=== PATIENT | male | born 1960 | race Caucasian/White ===

== ENCOUNTER 2016-09-09 09:16 | Emergency (ER) | payer OTHER ==
[~2016-09-09] VITALS: Ht 177.8 cm; Wt 86.2 kg
[~2016-09-09 09:16] MED LIST: AMOXICILLIN500 M2 PO; ASPIRIN324 MG PO; ASPIRIN325 MG PO; ATARAX25 MG PO; ATIVAN1 MG PO; BACTRIM DS 8001 TA1 PO; BENADRYL ALLERG25 M5 PO; CIPRO500 MG PO; DELTASONE20 M1 PO; EPIPEN 2-PAK1 MG/ML IJ; FLEXERIL10 MG PO; HYDROCODONE BIT1 T11 PO; IBU800 M1 PO; KEFLEX500 MG PO; LIDEX 0.05% CRE15 GM T; LIDEX0.05% T; MEDROL DOSEPAK4 MG PO; MOTRIN800 MG PO; NAPROSYN500 MG PO; PEN-VEE K500 MG PO; PEPCID20 MG PO; PROAIR HFA8.5 GM INH; ULTRAM50 MG PO; Zofran4 MG PO
[2016-09-09 09:20] VITALS: BP 139/78
[2016-09-09] MEDS ORDERED: CYCLOBENZAPRINE10 MG PO (09:39)
== END 2016-09-09 09:54 | disposition home or self-care (01) ==
LOC: ED 09:16
DX: M54.5 Low back pain (principal); F17.200 Nicotine dependence, unspecified, uncomplicated; J44.9 Chronic obstructive pulmonary disease, unspecified

== ENCOUNTER 2016-09-18 00:18 | Emergency (ER) | payer OTHER ==
[~2016-09-18] VITALS: Ht 172.7 cm; Wt 91.2 kg
[~2016-09-18 00:18] MED LIST changes: +CYCLOBENZAPRINE10 MG PO
[2016-09-18 00:46] LABS: BASO # 0.1 10*3/uL (0.0-0.1); BASO % 0.8 % (0.0-1.0); EOS # 0.2 10*3/uL (0.0-0.4); EOS % 1.6 % (1.0-4.0); HEMATOCRIT 44.6 % (42.0-52.0); HEMOGLOBIN 15.8 g/dl (14.0-18.0); IG # 0.1 10*3/uL (0.0-0.1); LYMPH # 3.5 10*3/uL (1.3-4.4); LYMPH % 29.7 % (27.0-41.0); MEAN CELL VOLUME 89.4 fl (80.0-94.0); MEAN CORPUSCULAR HGB 31.7 pg (27.0-31.0); MEAN CORPUSCULAR HGB CONC 35.4 g/dl (33.0-37.0); MEAN PLATELET VOLUME 8.4 fl (9.6-12.3); MONO # 0.8 10*3/uL (0.1-1.0); MONO % 6.8 % (3.0-9.0); NEUT # 7.2 10*3/uL (2.3-7.9); NEUT % 60.6 % (47.0-73.0); PLATELET COUNT AUTOMATED 314 10*3/uL (130-400); RED BLOOD COUNT 4.99 10*6/uL (4.50-5.90); WHITE BLOOD COUNT 11.8 10*3/uL (4.8-10.8)
[2016-09-18 01:06] LABS: ALBUMIN 3.9 gm/dl (3.1-4.5); ALKALINE PHOSPHATASE 73 U/L (45-117); BILIRUBIN, TOTAL 0.3 mg/dl (0.2-1.0); BUN 19 mg/dl (7-24); CARBON DIOXIDE 23 mmol/L (21-32); CHLORIDE 108 mmol/L (98-107); EST GLOM FILT AFRICAN AMERICAN > 60 ml/min; GLUCOSE 98 mg/dL (65-99); POTASSIUM 3.8 mmol/L (3.5-5.1); SGOT/AST 20 IU/L (3-35); SGPT/ALT 21 U/L (12-78); SODIUM 143 mmol/L (136-145); TOTAL PROTEIN 7.1 gm/dL (6.4-8.2)
[2016-09-18 03:01] VITALS: BP 106/69
[2016-09-18] MEDS ORDERED: ROBITUSSIN AC 110 ML PO (03:21)
== END 2016-09-18 03:39 | disposition home or self-care (01) ==
LOC: ED 00:18
PROVIDERS: Emergency Medicine
DX: Z77.098 Contact with and (suspected) exposure to other hazardous, chiefly nonmedicinal, chemicals (principal); R06.02 Shortness of breath; J44.9 Chronic obstructive pulmonary disease, unspecified

== ENCOUNTER → 2016-11-05 | Day surgery (SDC) | payer OTHER ==
[~2016-11-05] VITALS: Ht 175.2 cm; Wt 90.7 kg
[~2016-11-05] MED LIST changes: +ASPIRIN BUFFER325 MG PO; +ROBITUSSIN AC 110 ML PO
[2016-11-05 10:00] VITALS: BP 114/63
[2016-11-05 10:47] VITALS: BP 88/41
== END | disposition home or self-care (01) ==
LOC: SDC 11-02 13:15
DX: L72.11 Pilar cyst (principal); J44.9 Chronic obstructive pulmonary disease, unspecified; K21.9 Gastro-esophageal reflux disease without esophagitis; Z98.890 Other specified postprocedural states; Z82.49 Family history of ischemic heart disease and other diseases of the circulatory system; F17.210 Nicotine dependence, cigarettes, uncomplicated; Z79.899 Other long term (current) drug therapy

== ENCOUNTER 2016-12-29 10:02 | Emergency (ER) | payer OTHER ==
[~2016-12-29] VITALS: Ht 177.8 cm; Wt 90.7 kg
[2016-12-29 10:15] VITALS: BP 128/71
[2016-12-29 10:50] LABS: BASO # 0.1 10*3/uL (0.0-0.1); BASO % 0.8 % (0.0-1.0); EOS # 0.1 10*3/uL (0.0-0.4); EOS % 1.4 % (1.0-4.0); HEMATOCRIT 43.6 % (42.0-52.0); HEMOGLOBIN 15.2 g/dl (14.0-18.0); LYMPH # 2.5 10*3/uL (1.3-4.4); LYMPH % 29.2 % (27.0-41.0); MEAN CELL VOLUME 92.8 fl (80.0-94.0); MEAN CORPUSCULAR HGB 32.3 pg (27.0-31.0); MEAN CORPUSCULAR HGB CONC 34.9 g/dl (33.0-37.0); MEAN PLATELET VOLUME 8.9 fl (9.6-12.3); MONO # 0.6 10*3/uL (0.1-1.0); MONO % 7.2 % (3.0-9.0); NEUT # 5.2 10*3/uL (2.3-7.9); NEUT % 60.2 % (47.0-73.0); PLATELET COUNT AUTOMATED 303 10*3/uL (130-400); RED CELL DISTRI WIDTH 13.6 % (0-14.5); WHITE BLOOD COUNT 8.7 10*3/uL (4.8-10.8)
[2016-12-29 10:59] LABS: ACT PARTIAL THROMBO TIME 23.8 SECONDS (20.8-31.5)
[2016-12-29 11:05] LABS: ALBUMIN 3.7 gm/dl (3.1-4.5); ALKALINE PHOSPHATASE 67 U/L (45-117); BUN 10 mg/dl (7-24); CHLORIDE 110 mmol/L (98-107); CREATININE 0.88 mg/dL (0.70-1.30); LIPASE 1333 U/L (73-393); POTASSIUM 4.1 mmol/L (3.5-5.1); SGOT/AST 15 IU/L (3-35); SGPT/ALT 21 U/L (12-78); SODIUM 140 mmol/L (136-145)
[2016-12-29 11:07] LABS: TROPONIN I < 0.015 ng/ml (<0.045)
[2016-12-29 11:15] LABS: BILIRUBIN NEGATIVE (NEGATIVE); BLOOD NEGATIVE (NEGATIVE); CLARITY CLEAR (CLEAR); COLOR YELLOW (YELLOW); GLUCOSE NEGATIVE (NEGATIVE); KETONE NEGATIVE (NEGATIVE); LEUKO ESTERASE NEGATIVE (NEGATIVE); NITRITE NEGATIVE (NEGATIVE); PH 6.5 (5.0-9.0); SPECIFIC GRAVITY 1.015 (1.005-1.030); UROBILINOGEN 0.2 E.U./dl (0.2-1.0)
[2016-12-29 11:45] LABS: EPITHELIAL CELLS 0-2; WBC 0-2 wbc/hpf (0-5)
[2016-12-29] MEDS ORDERED: PREDNISONE10 MG PO (12:59)
[2016-12-29] MEDS ORDERED: ZITHROMAX250 MG PO (12:59)
== END 2016-12-29 13:52 | disposition home or self-care (01) ==
LOC: ED 10:02
PROVIDERS: Emergency Medicine
DX: J44.1 Chronic obstructive pulmonary disease with (acute) exacerbation (principal); J20.9 Acute bronchitis, unspecified; F17.200 Nicotine dependence, unspecified, uncomplicated; Z79.899 Other long term (current) drug therapy; Z87.01 Personal history of pneumonia (recurrent)

== ENCOUNTER 2017-08-01 09:44 | Emergency (ER) | payer OTHER ==
[~2017-08-01] VITALS: Ht 175.2 cm; Wt 90.7 kg
[~2017-08-01 09:44] MED LIST changes: +PREDNISONE10 MG PO; +ZITHROMAX250 MG PO
[2017-08-01 09:46] VITALS: BP 126/88
[2017-08-01] MEDS ORDERED: LIDEX 0.05% CRE15 GM T (10:15)
== END 2017-08-01 10:41 | disposition home or self-care (01) ==
LOC: ED
DX: S60.562A Insect bite (nonvenomous) of left hand, initial encounter (principal); S60.561A Insect bite (nonvenomous) of right hand, initial encounter; S20.469A Insect bite (nonvenomous) of unspecified back wall of thorax, initial encounter; Z79.82 Long term (current) use of aspirin; Z79.899 Other long term (current) drug therapy; W57.XXXA Bitten or stung by nonvenomous insect and other nonvenomous arthropods, initial encounter; Y93.89 Activity, other specified; Y92.89 Other specified places as the place of occurrence of the external cause; Y99.9 Unspecified external cause status

== ENCOUNTER 2017-08-24 09:11 | Emergency (ER) | payer OTHER ==
[~2017-08-24] VITALS: Ht 177.8 cm; Wt 88.5 kg
[2017-08-24 09:12] VITALS: BP 106/76
[2017-08-24] MEDS ORDERED: PREDNISONE20 M1 PO (10:32)
[2017-08-24] MEDS ORDERED: TESSALON PERLE100 M1 PO (10:32)
[2017-08-24] MEDS ORDERED: ZITHROMAX250 MG PO (10:32)
== END 2017-08-24 11:00 | disposition home or self-care (01) ==
LOC: ED 09:11
DX: J20.9 Acute bronchitis, unspecified (principal); F17.200 Nicotine dependence, unspecified, uncomplicated

== ENCOUNTER 2017-12-23 16:43 | Emergency (ER) | payer OTHER ==
[~2017-12-23] VITALS: Ht 175.2 cm; Wt 90.7 kg
[~2017-12-23 16:43] MED LIST changes: +PREDNISONE20 M1 PO; +TESSALON PERLE100 M1 PO
[2017-12-23 16:47] VITALS: BP 102/74
[2017-12-23] MEDS ORDERED: CEPHALEXIN500 M1 PO (18:25)
[2017-12-23] MEDS ORDERED: PREDNISONE50 MG PO (18:25)
== END 2017-12-23 18:27 | disposition home or self-care (01) ==
LOC: ED 16:43
DX: T63.441A Toxic effect of venom of bees, accidental (unintentional), initial encounter (principal); M79.89 Other specified soft tissue disorders; L03.114 Cellulitis of left upper limb; Z91.030 Bee allergy status; Y92.89 Other specified places as the place of occurrence of the external cause

== ENCOUNTER 2018-04-06 13:49 | Emergency (ER) | payer OTHER ==
[~2018-04-06] VITALS: Ht 175.2 cm; Wt 86.2 kg
[~2018-04-06 13:49] MED LIST changes: +CEPHALEXIN500 M1 PO; +PREDNISONE50 MG PO; +Zofran4 MG SL
[2018-04-06 13:50] VITALS: BP 115/65
[2018-04-06] MEDS ORDERED: CYCLOBENZAPRINE5 M3 PO (16:29)
[2018-04-06] MEDS ORDERED: NAPROSYN500 MG PO (16:29)
[2018-04-06] MEDS ORDERED: ULTRAM50 MG PO (16:30)
== END 2018-04-06 16:40 | disposition home or self-care (01) ==
LOC: ED 13:49
DX: S20.412A Abrasion of left back wall of thorax, initial encounter (principal); M54.5 Low back pain; Z91.030 Bee allergy status; W10.8XXA Fall (on) (from) other stairs and steps, initial encounter; Y93.89 Activity, other specified; Y92.89 Other specified places as the place of occurrence of the external cause; Y99.8 Other external cause status

== ENCOUNTER 2019-02-04 19:44 | Emergency (ER) | payer OTHER ==
[~2019-02-04] VITALS: Ht 175.2 cm; Wt 90.7 kg
[~2019-02-04 19:44] MED LIST changes: +CYCLOBENZAPRINE5 M3 PO; +NORCO 5-325 TA1 EACH PO; +VALTREX1000 MG PO
[2019-02-04 19:46] VITALS: BP 122/79
== END 2019-02-04 20:04 | disposition home or self-care (01) ==
LOC: ED 19:44
DX: S05.01XA Injury of conjunctiva and corneal abrasion without foreign body, right eye, initial encounter (principal); Z91.030 Bee allergy status; Z79.899 Other long term (current) drug therapy; Z79.2 Long term (current) use of antibiotics; X58.XXXA Exposure to other specified factors, initial encounter; Y93.89 Activity, other specified; Y92.89 Other specified places as the place of occurrence of the external cause; Y99.8 Other external cause status

== ENCOUNTER 2019-02-06 07:48 | Emergency (ER) | payer OTHER ==
[~2019-02-06] VITALS: Ht 175.2 cm; Wt 90.7 kg
[2019-02-06 07:51] VITALS: BP 132/90
== END 2019-02-06 08:16 | disposition home or self-care (01) ==
LOC: ED 07:48
DX: H57.89 Other specified disorders of eye and adnexa (principal); H57.11 Ocular pain, right eye; H53.8 Other visual disturbances; J44.9 Chronic obstructive pulmonary disease, unspecified; Z91.030 Bee allergy status; Z79.899 Other long term (current) drug therapy; Z79.2 Long term (current) use of antibiotics

== ENCOUNTER 2020-01-22 11:19 | Emergency (ER) | payer OTHER ==
[~2020-01-22] VITALS: Ht 177.8 cm; Wt 89.8 kg
[2020-01-22 11:37] VITALS: BP 117/71
[2020-01-22] MEDS ORDERED: AMOXICILLIN500 M2 PO (12:03)
== END 2020-01-22 12:19 | disposition home or self-care (01) ==
LOC: ED 11:19
DX: K04.7 Periapical abscess without sinus (principal); Z91.030 Bee allergy status

== ENCOUNTER → 2020-07-24 | Outpatient (CLI) | payer OTHER | END | disposition home or self-care (01) | LOC: RAD 10:36 | PROVIDERS: ATTEND Nurse Practitioner Primary Care | DX: M25.532 Pain in left wrist (principal); R20.2 Paresthesia of skin ==

== ENCOUNTER 2020-12-18 04:42 | Emergency (ER) | payer OTHER ==
[2020-12-18 05:08] VITALS: BP 123/76
[2020-12-18] MEDS ORDERED: MIRALAX17 GM PO (05:21)
== END 2020-12-18 05:27 | disposition home or self-care (01) ==
LOC: ED 04:42
DX: K59.00 Constipation, unspecified (principal); Z91.030 Bee allergy status; Z79.899 Other long term (current) drug therapy; Z79.2 Long term (current) use of antibiotics

== ENCOUNTER 2020-12-27 03:13 | Emergency (ER) | payer OTHER ==
[~2020-12-27] VITALS: Ht 175.2 cm; Wt 89.8 kg
[~2020-12-27 03:13] MED LIST changes: +MIRALAX17 GM PO
[2020-12-27 03:20] VITALS: BP 126/91
[2020-12-27 03:57] LABS: BASO # 0.1 10*3/uL (0.0-0.1); BASO % 0.6 % (0.0-1.0); EOS # 0.1 10*3/uL (0.0-0.4); EOS % 0.8 % (1.0-4.0); LYMPH % 17.4 % (27.0-41.0); MEAN CELL VOLUME 92.3 fl (80.0-94.0); MEAN CORPUSCULAR HGB 31.8 pg (27.0-31.0); MEAN CORPUSCULAR HGB CONC 34.4 g/dl (33.0-37.0); MEAN PLATELET VOLUME 8.4 fl (9.6-12.3); MONO # 1.3 10*3/uL (0.1-1.0); MONO % 11.6 % (3.0-9.0); NEUT # 7.8 10*3/uL (2.3-7.9); PLATELET COUNT AUTOMATED 292 10*3/uL (130-400); RED BLOOD COUNT 4.66 10*6/uL (4.50-5.90); RED CELL DISTRI WIDTH 13.2 % (0-14.5); WHITE BLOOD COUNT 11.3 10*3/uL (4.8-10.8)
[2020-12-27 04:12] LABS: ALBUMIN 3.4 gm/dl (3.1-4.5); ALKALINE PHOSPHATASE 87 U/L (45-117); BUN 13 mg/dl (7-24); CHLORIDE 110 mmol/L (98-107); CREATININE 0.87 mg/dL (0.70-1.30); POTASSIUM 3.9 mmol/L (3.5-5.1); SGOT/AST 19 IU/L (3-35); SGPT/ALT 30 U/L (12-78); SODIUM 137 mmol/L (136-145); TOTAL PROTEIN 6.9 gm/dL (6.4-8.2)
== END 2020-12-27 05:33 | disposition home or self-care (01) ==
LOC: ED 03:13
PROVIDERS: Emergency Medicine
DX: J39.8 Other specified diseases of upper respiratory tract (principal); Z20.822 Contact with and (suspected) exposure to COVID-19; J44.9 Chronic obstructive pulmonary disease, unspecified; Z91.030 Bee allergy status

== ENCOUNTER 2020-12-29 17:55 | Emergency (ER) | payer OTHER ==
[~2020-12-29] VITALS: Ht 177.8 cm; Wt 90.7 kg
[2020-12-29 18:01] VITALS: BP 151/76
== END 2020-12-29 18:15 | disposition left against medical advice (07) ==
LOC: ED 17:55
DX: J02.9 Acute pharyngitis, unspecified (principal); R05 Cough; Z53.21 Procedure and treatment not carried out due to patient leaving prior to being seen by health care provider

== ENCOUNTER 2021-06-29 07:27 | Emergency (ER) | payer OTHER ==
[~2021-06-29] VITALS: Wt 90.7 kg
[2021-06-29 07:37] VITALS: BP 117/72
[2021-06-29 08:08] LABS: BASO # 0.1 10*3/uL (0.0-0.1); BASO % 0.7 % (0.0-1.0); EOS # 0.1 10*3/uL (0.0-0.4); EOS % 0.7 % (1.0-4.0); HEMATOCRIT 45.7 % (42.0-52.0); LYMPH # 2.4 10*3/uL (1.3-4.4); LYMPH % 20.6 % (27.0-41.0); MEAN CELL VOLUME 91.2 fl (80.0-94.0); MEAN CORPUSCULAR HGB 31.3 pg (27.0-31.0); MEAN CORPUSCULAR HGB CONC 34.4 g/dl (33.0-37.0); MEAN PLATELET VOLUME 8.2 fl (9.6-12.3); MONO # 1.1 10*3/uL (0.1-1.0); MONO % 9.6 % (3.0-9.0); NEUT % 67.6 % (47.0-73.0); PLATELET COUNT AUTOMATED 363 10*3/uL (130-400); RED BLOOD COUNT 5.01 10*6/uL (4.50-5.90); RED CELL DISTRI WIDTH 13.2 % (0-14.5); WHITE BLOOD COUNT 11.9 10*3/uL (4.8-10.8)
[2021-06-29 08:24] LABS: ALKALINE PHOSPHATASE 78 U/L (45-117); BUN 10 mg/dl (7-24); CHLORIDE 108 mmol/L (98-107); CREATININE 0.97 mg/dL (0.70-1.30); LIPASE 131 U/L (73-393); POTASSIUM 4.2 mmol/L (3.5-5.1); SGOT/AST 12 IU/L (3-35); SGPT/ALT 18 U/L (12-78); SODIUM 140 mmol/L (136-145); TOTAL PROTEIN 7.8 gm/dL (6.4-8.2)
[2021-06-29 08:24] LABS: BILIRUBIN Negative (Negative); BLOOD Negative (Negative); CLARITY Clear (Clear); COLOR Yellow (Yellow); GLUCOSE Negative (Negative); KETONE Negative (Negative); LEUKO ESTERASE Negative (Negative); NITRITE Negative (Negative); SPECIFIC GRAVITY <= 1.005 (1.001-1.030); UROBILINOGEN 0.2 E.U./dl (0.0-1.0)
[2021-06-29 08:38] LABS: BACTERIA TRACE; WBC 0-2 wbc/hpf (0-5)
[2021-06-29] MEDS ORDERED: LOMOTIL 2.5-0.1 EACH PO (08:53)
== END 2021-06-29 08:54 | disposition home or self-care (01) ==
LOC: ED 07:27
PROVIDERS: Emergency Medicine
DX: R19.7 Diarrhea, unspecified (principal); Z91.030 Bee allergy status; J44.9 Chronic obstructive pulmonary disease, unspecified

== ENCOUNTER → 2021-07-02 | Outpatient (CLI) | payer OTHER ==
[~2021-07-02] MED LIST changes: +LOMOTIL 2.5-0.1 EACH PO
== END | disposition home or self-care (01) ==
LOC: LAB 05:51
PROVIDERS: ATTEND Family Medicine
DX: K52.9 Noninfective gastroenteritis and colitis, unspecified (principal)

== ENCOUNTER 2021-08-20 08:02 | Emergency (ER) | payer OTHER ==
[~2021-08-20] VITALS: Wt 89.4 kg
[2021-08-20 08:08] VITALS: BP 127/75
[2021-08-20] MEDS ORDERED: PREDNISONE50 MG PO (08:38)
[2021-08-20] MEDS ORDERED: ZITHROMAX250 MG PO (08:38)
== END 2021-08-20 08:47 | disposition home or self-care (01) ==
LOC: ED 08:02
DX: J32.8 Other chronic sinusitis (principal); Z91.030 Bee allergy status

== ENCOUNTER 2021-10-27 09:42 | Emergency (ER) | payer OTHER ==
[~2021-10-27] VITALS: Ht 175.2 cm; Wt 89.8 kg
[2021-10-27 10:03] VITALS: BP 113/79
[2021-10-27 10:38] LABS: BASO # 0.1 10*3/uL (0.0-0.1); BASO % 0.8 % (0.0-1.0); EOS # 0.1 10*3/uL (0.0-0.4); EOS % 1.1 % (1.0-4.0); HEMATOCRIT 44.7 % (42.0-52.0); LYMPH # 2.6 10*3/uL (1.3-4.4); LYMPH % 29.1 % (27.0-41.0); MEAN CELL VOLUME 89.9 fl (80.0-94.0); MEAN CORPUSCULAR HGB 31.2 pg (27.0-31.0); MEAN CORPUSCULAR HGB CONC 34.7 g/dl (33.0-37.0); MEAN PLATELET VOLUME 8.2 fl (9.6-12.3); MONO # 0.6 10*3/uL (0.1-1.0); MONO % 6.3 % (3.0-9.0); NEUT # 5.6 10*3/uL (2.3-7.9); NEUT % 62.1 % (47.0-73.0); PLATELET COUNT AUTOMATED 297 10*3/uL (130-400); RED BLOOD COUNT 4.97 10*6/uL (4.50-5.90)
[2021-10-27 10:53] LABS: ACT PARTIAL THROMBO TIME 28.8 SECONDS (20.0-32.1)
[2021-10-27 10:57] LABS: ALKALINE PHOSPHATASE 67 U/L (45-117); BUN 10 mg/dl (7-24); CHLORIDE 113 mmol/L (98-107); CREATININE 0.92 mg/dL (0.70-1.30); LIPASE 179 U/L (73-393); POTASSIUM 3.7 mmol/L (3.5-5.1); SGOT/AST 17 IU/L (3-35); SGPT/ALT 22 U/L (12-78); SODIUM 143 mmol/L (136-145)
[2021-10-27] MEDS ORDERED: ZITHROMAX250 MG PO (12:33)
[2021-10-27] MEDS ORDERED: PREDNISONE50 MG PO (12:33)
== END 2021-10-27 12:46 | disposition home or self-care (01) ==
LOC: ED 09:42
PROVIDERS: Emergency Medicine
DX: J44.1 Chronic obstructive pulmonary disease with (acute) exacerbation (principal); Z91.030 Bee allergy status

== ENCOUNTER 2022-01-09 14:31 | Emergency (ER) | payer OTHER ==
[~2022-01-09] VITALS: Ht 172.7 cm; Wt 90.7 kg
[2022-01-09 14:39] VITALS: BP 128/95
== END 2022-01-09 15:50 | disposition left against medical advice (07) ==
LOC: ED 14:31
DX: T63.441A Toxic effect of venom of bees, accidental (unintentional), initial encounter (principal); Z53.21 Procedure and treatment not carried out due to patient leaving prior to being seen by health care provider; Y92.89 Other specified places as the place of occurrence of the external cause

== ENCOUNTER 2022-05-14 03:34 | Emergency (ER) | payer OTHER ==
[~2022-05-14] VITALS: Ht 170.1 cm; Wt 90.7 kg
[2022-05-14 03:56] VITALS: BP 132/84
[2022-05-14 03:59] LABS: BASO # 0.1 10*3/uL (0.0-0.1); BASO % 1.3 % (0.0-1.0); EOS # 0.1 10*3/uL (0.0-0.4); EOS % 1.9 % (1.0-4.0); HEMATOCRIT 48.2 % (42.0-52.0); LYMPH # 1.8 10*3/uL (1.3-4.4); LYMPH % 25.6 % (27.0-41.0); MEAN CELL VOLUME 93.1 fl (80.0-94.0); MEAN CORPUSCULAR HGB 31.9 pg (27.0-31.0); MEAN CORPUSCULAR HGB CONC 34.2 g/dl (33.0-37.0); MEAN PLATELET VOLUME 8.7 fl (9.6-12.3); MONO # 0.8 10*3/uL (0.1-1.0); MONO % 11.5 % (3.0-9.0); NEUT # 4.1 10*3/uL (2.3-7.9); NEUT % 58.8 % (47.0-73.0); PLATELET COUNT AUTOMATED 298 10*3/uL (130-400); RED BLOOD COUNT 5.18 10*6/uL (4.50-5.90); RED CELL DISTRI WIDTH 13.4 % (0-14.5)
[2022-05-14 04:10] LABS: ACT PARTIAL THROMBO TIME 28.1 SECONDS (20.0-32.1)
[2022-05-14 04:27] LABS: ALKALINE PHOSPHATASE 72 U/L (46-116); BUN 15 mg/dl (9-23); CHLORIDE 106 mmol/L (98-107); SGPT/ALT 17 U/L (10-49); TOTAL PROTEIN 7.3 gm/dL (6.0-8.0)
[2022-05-14] MEDS ORDERED: WAL-ZYR10 MG PO (06:39)
[2022-05-14] MEDS ORDERED: BENZONATATE100 M1 PO (06:46)
== END 2022-05-14 07:04 | disposition home or self-care (01) ==
LOC: ED 03:34
PROVIDERS: Emergency Medicine
DX: J06.9 Acute upper respiratory infection, unspecified (principal); Z20.822 Contact with and (suspected) exposure to COVID-19; J44.9 Chronic obstructive pulmonary disease, unspecified; Z91.030 Bee allergy status

== ENCOUNTER 2022-08-10 04:10 | Emergency (ER) | payer OTHER ==
[~2022-08-10] VITALS: Ht 175.2 cm; Wt 90.7 kg
[~2022-08-10 04:10] MED LIST changes: +BENZONATATE100 M1 PO; +WAL-ZYR10 MG PO
[2022-08-10 04:18] VITALS: BP 139/84
== END 2022-08-10 05:23 | disposition home or self-care (01) ==
LOC: ED 04:10
DX: J06.9 Acute upper respiratory infection, unspecified (principal); Z91.030 Bee allergy status; J44.9 Chronic obstructive pulmonary disease, unspecified; Z20.822 Contact with and (suspected) exposure to COVID-19

== ENCOUNTER 2024-01-09 17:27 | Inpatient (IN) | payer SELFPAY ==
[~2024-01-09] VITALS: Ht 177.8 cm; Wt 89.4 kg
[2024-01-09] MEDS ORDERED: ASPIRIN, CHEWABLE 81 MG TAB PO ONE (17:35)
[2024-01-09] MEDS ORDERED: SODIUM CHLORIDE 0.9% 1,000 ML IV ONE (17:43)
[2024-01-09] MEDS ORDERED: ASPIRIN, CHEWABLE 81 MG TAB ONE (17:45)
[2024-01-09 17:46] VITALS: BP 101/67
[2024-01-09 17:55] LABS: BASO # 0.1 10*3/uL (0.0-0.1); BASO % 0.6 % (0.0-1.0); EOS # 0.1 10*3/uL (0.0-0.4); HEMATOCRIT 42.2 % (42.0-52.0); LYMPH # 2.4 10*3/uL (1.3-4.4); LYMPH % 19.1 % (27.0-41.0); MEAN CELL VOLUME 91.5 fl (80.0-94.0); MEAN CORPUSCULAR HGB 31.2 pg (27.0-31.0); MEAN CORPUSCULAR HGB CONC 34.1 g/dl (33.0-37.0); MEAN PLATELET VOLUME 8.1 fl (9.6-12.3); MONO # 0.9 10*3/uL (0.1-1.0); MONO % 7.1 % (3.0-9.0); NEUT % 71.1 % (47.0-73.0); PLATELET COUNT AUTOMATED 329 10*3/uL (130-400); RED BLOOD COUNT 4.61 10*6/uL (4.50-5.90); RED CELL DISTRI WIDTH 13.3 % (0-14.5); WHITE BLOOD COUNT 12.6 10*3/uL (4.8-10.8)
[2024-01-09 18:09] LABS: ACT PARTIAL THROMBO TIME 25.1 SECONDS (20.0-32.1)
[2024-01-09 18:17] LABS: BUN 13 mg/dl (9-23); CHLORIDE 108 mmol/L (98-107); POTASSIUM 3.8 mmol/L (3.4-5.1)
[2024-01-09 18:30] VITALS: BP 112/68
[2024-01-09 18:55] VITALS: BP 115/71
[2024-01-09 20:23] VITALS: BP 117/74
[2024-01-09] MEDS ORDERED: Ceftriaxone Sodium 1 GM/10 ML SYR IV ONE (20:45)
[2024-01-09] MEDS ORDERED: AZITHROMYCIN 250 ML IV ONE (20:45)
[2024-01-09] MEDS ORDERED: Magnesium Hydroxide 30 ML UDC PO PRN (21:30)
[2024-01-09] MEDS ORDERED: Ondansetron Hydrochloride 4 MG/2 ML VIAL IV PRN (21:30)
[2024-01-09] MEDS ORDERED: Acetaminophen/Hydrocodone 5 MG/325 MG TABLET PO PRN (21:30)
[2024-01-09] MEDS ORDERED: TEMAZEPAM 15 MG CAP PO PRN (21:30)
[2024-01-09] MEDS ORDERED: BISACODYL 10 MG SUPP R PRN (21:30)
[2024-01-09] MEDS ORDERED: BISACODYL 5 MG TAB PO PRN (21:30)
[2024-01-09] MEDS ORDERED: ACETAMINOPHEN 325 MG TAB PO PRN (21:30)
[2024-01-09] MEDS ORDERED: MORPHINE Sulfate 2 MG/ML SYR IV PRN (21:30)
[2024-01-09] MEDS ORDERED: Pantoprazole Sodium 40 MG TAB PO PRN (21:40)
[2024-01-09] MEDS ORDERED: Albuterol Sulf/Ipratropium 3 ML VIAL NEB SCH (21:50)
[2024-01-09] MEDS ORDERED: methylPREDNISolone sod succ 40 MG VIAL IV SCH (22:00)
[2024-01-09] MEDS ORDERED: GUAIFENESIN 600 MG TAB ER PO SCH (22:00)
[2024-01-09 23:24] VITALS: BP 120/82
[2024-01-10 06:16] LABS: HEMATOCRIT 43.2 % (42.0-52.0); MEAN CELL VOLUME 92.9 fl (80.0-94.0); MEAN CORPUSCULAR HGB 31.2 pg (27.0-31.0); MEAN CORPUSCULAR HGB CONC 33.6 g/dl (33.0-37.0); MEAN PLATELET VOLUME 8.4 fl (9.6-12.3); PLATELET COUNT AUTOMATED 349 10*3/uL (130-400); RED BLOOD COUNT 4.65 10*6/uL (4.50-5.90); RED CELL DISTRI WIDTH 13.6 % (0-14.5); WHITE BLOOD COUNT 12.8 10*3/uL (4.8-10.8)
[2024-01-10 06:18] LABS: MANUAL DIFF REFLEX YES
[2024-01-10 06:37] LABS: ALKALINE PHOSPHATASE 73 U/L (46-116); BUN 14 mg/dl (9-23); CHLORIDE 108 mmol/L (98-107); CHOLESTEROL 232 mg/dL (<200); FREE T4 1.16 ng/dl (0.89-1.76); LDL CHOLESTEROL 176 mg/dL (9-159); POTASSIUM 3.9 mmol/L (3.4-5.1); SGPT/ALT 13 U/L (5-49); TOTAL PROTEIN 6.6 gm/dL (6.0-8.0); TRIGLYCERIDES 76 mg/dl (<150)
[2024-01-10 06:50] LABS: VITAMIN D, 25-HYDROXY 37.2 ng/mL (30-100)
[2024-01-10] MEDS ORDERED: Regadenoson 0.4 MG/5 ML SYR IV ONE (07:04)
[2024-01-10 07:11] LABS: PLATELET SUFFICIENCY NORMAL (NORMAL); POLYCHROMASIA SLIGHT; TOTAL CELLS COUNTED 100 #CELLS
[2024-01-10] MEDS ORDERED: Technetium Tc 99M Tetrofosmi 0.23 MG KIT IJ SCH (07:15)
[2024-01-10 08:00] VITALS: BP 117/69
[2024-01-10] MEDS ORDERED: ASPIRIN, CHEWABLE 81 MG TAB PO SCH (10:00)
[2024-01-10] MEDS ORDERED: ATORVASTATIN CALCIUM 40 MG TABLET PO SCH (10:00)
[2024-01-10] MEDS ORDERED: Nicotine 21 MG PATCH T SCH (10:00)
[2024-01-10] MEDS ORDERED: Enoxaparin Sodium 40 MG/0.4 ML SYR SC SCH (10:00)
[2024-01-10] MEDS ORDERED: Doxycycline Hyclate 100 MG in SODIUM CHLORIDE 0.9% 250 ML IV SCH (10:00)
[2024-01-10] MEDS ORDERED: FUROSEMIDE 20 MG/2 ML VIAL IV SCH (10:45)
[2024-01-10 12:00] VITALS: BP 125/79
[2024-01-10 13:22] LABS: BILIRUBIN Negative (Negative); BLOOD Negative (Negative); CLARITY Clear (Clear); COLOR Yellow (Yellow); GLUCOSE Negative (Negative); KETONE Negative (Negative); LEUKO ESTERASE Negative (Negative); NITRITE Negative (Negative); PH 5.5 (4.5-8.0); SPECIFIC GRAVITY 1.015 (1.001-1.030); UROBILINOGEN 0.2 E.U./dl (0.0-1.0)
[2024-01-10 14:08] LABS: BACTERIA TRACE; WBC 0-2 wbc/hpf (0-5)
[2024-01-10 16:00] VITALS: BP 132/62
[2024-01-10 20:00] VITALS: BP 123/73
[2024-01-10] MEDS ORDERED: Ceftriaxone Sodium 1 GM in SYRINGE INFUSION 10 ML IV SCH (21:00)
[2024-01-10] MEDS ORDERED: Scopolamine 1 PATCH PATCH T SCH (21:00)
[2024-01-10 22:00] VITALS: BP 123/73
[2024-01-10] MEDS ORDERED: AZITHROMYCIN 250 ML IV SCH (22:00)
[2024-01-11] VITALS: BP 106/62
[2024-01-11 05:39] LABS: BUN 18 mg/dl (9-23); CHLORIDE 107 mmol/L (98-107); POTASSIUM 3.8 mmol/L (3.4-5.1)
[2024-01-11 06:15] LABS: BASO % 0.2 % (0.0-1.0); HEMATOCRIT 42.4 % (42.0-52.0); LYMPH # 1.5 10*3/uL (1.3-4.4); LYMPH % 6.7 % (27.0-41.0); MEAN CORPUSCULAR HGB 31.9 pg (27.0-31.0); MEAN CORPUSCULAR HGB CONC 34.7 g/dl (33.0-37.0); MEAN PLATELET VOLUME 8.8 fl (9.6-12.3); MONO % 4.6 % (3.0-9.0); NEUT # 19.4 10*3/uL (2.3-7.9); NEUT % 87.4 % (47.0-73.0); PLATELET COUNT AUTOMATED 344 10*3/uL (130-400); RED BLOOD COUNT 4.61 10*6/uL (4.50-5.90); RED CELL DISTRI WIDTH 13.8 % (0-14.5); WHITE BLOOD COUNT 22.2 10*3/uL (4.8-10.8)
[2024-01-11 08:00] VITALS: BP 109/55
[2024-01-11] MEDS ORDERED: K-TAB20 MEQ PO (11:01)
[2024-01-11] MEDS ORDERED: ASPIRIN CHILDRE81 MG PO (11:01)
[2024-01-11] MEDS ORDERED: NEBULIZER1 EACH MC (11:01)
[2024-01-11] MEDS ORDERED: LASIX40 MG PO (11:01)
[2024-01-11] MEDS ORDERED: NICODERM CQ1 EAC2 TD (11:01)
[2024-01-11] MEDS ORDERED: ATORVASTATIN CA40 M1 PO (11:01)
[2024-01-11] MEDS ORDERED: Ipratropium Brom3 ML INH (11:01)
[2024-01-11] MEDS ORDERED: DOXYCYCLINE HY100 M3 PO (11:02)
[2024-01-11] MEDS ORDERED: PREDNISONE10 MG PO (11:02)
[2024-01-11 12:00] VITALS: BP 105/53
== END 2024-01-11 12:45 | disposition home or self-care (01) | DRG 872 ==
LOC: ED 17:27 → 4E 20:52 → EDHOLD 20:52 → 4E 22:47
PROVIDERS: Family Medicine; Internal Medicine; Student in an Organized Health Care Education/Training Program; ADMIT Internal Medicine; ATTEND Internal Medicine
PROC: 4A02XM4 Measurement of Cardiac Total Activity, External Approach (ICD-10-PCS; principal; 2024-01-10)
PROC: 3E073KZ Introduction of Other Diagnostic Substance into Coronary Artery, Percutaneous Approach (ICD-10-PCS; 2024-01-10)
DX: A41.9 Sepsis, unspecified organism (principal); J44.1 Chronic obstructive pulmonary disease with (acute) exacerbation; J98.4 Other disorders of lung; E87.8 Other disorders of electrolyte and fluid balance, not elsewhere classified; R73.9 Hyperglycemia, unspecified; I20.89 Other forms of angina pectoris; I50.9 Heart failure, unspecified; E78.5 Hyperlipidemia, unspecified; I11.0 Hypertensive heart disease with heart failure; Z71.6 Tobacco abuse counseling; Z82.49 Family history of ischemic heart disease and other diseases of the circulatory system; Z91.030 Bee allergy status; Z87.828 Personal history of other (healed) physical injury and trauma

== ENCOUNTER 2024-01-17 13:04 | Emergency (ER) | payer SELFPAY ==
[~2024-01-17] VITALS: Ht 177.8 cm; Wt 86.2 kg
[~2024-01-17 13:04] MED LIST changes: +ASPIRIN CHILDRE81 MG PO; +ATORVASTATIN CA40 M1 PO; +DOXYCYCLINE HY100 M3 PO; +Ipratropium Brom3 ML INH; +K-TAB20 MEQ PO; +LASIX40 MG PO; +NEBULIZER1 EACH MC; +NICODERM CQ1 EAC2 TD
[2024-01-17] MEDS ORDERED: SODIUM CHLORIDE 0.9% 1,000 ML IV ONE (13:45)
[2024-01-17 14:02] LABS: HEMATOCRIT 48.7 % (42.0-52.0); MEAN CELL VOLUME 90.7 fl (80.0-94.0); MEAN CORPUSCULAR HGB 31.5 pg (27.0-31.0); MEAN CORPUSCULAR HGB CONC 34.7 g/dl (33.0-37.0); MEAN PLATELET VOLUME 8.2 fl (9.6-12.3); PLATELET COUNT AUTOMATED 351 10*3/uL (130-400); RED BLOOD COUNT 5.37 10*6/uL (4.50-5.90); RED CELL DISTRI WIDTH 13.9 % (0-14.5)
[2024-01-17 14:03] LABS: MANUAL DIFF REFLEX YES
[2024-01-17 14:30] LABS: ALKALINE PHOSPHATASE 83 U/L (46-116); BUN 13 mg/dl (9-23); CHLORIDE 103 mmol/L (98-107); POTASSIUM 3.5 mmol/L (3.4-5.1); SGPT/ALT 19 U/L (5-49); TOTAL PROTEIN 7.4 gm/dL (6.0-8.0)
[2024-01-17 14:35] LABS: ATYPICAL LYMPHS 2 % (0-0); BURR CELLS FEW; PLATELET SUFFICIENCY NORMAL (NORMAL); TOTAL CELLS COUNTED 100 #CELLS
[2024-01-17 14:51] VITALS: BP 110/73
[2024-01-17 15:53] LABS: BUN 15 mg/dl (9-23); CHLORIDE 102 mmol/L (98-107); POTASSIUM 3.6 mmol/L (3.4-5.1)
== END 2024-01-17 17:22 | disposition home or self-care (01) ==
LOC: ED 13:04
PROVIDERS: Internal Medicine
DX: T50.1X1A Poisoning by loop [high-ceiling] diuretics, accidental (unintentional), initial encounter (principal); R11.0 Nausea; R42 Dizziness and giddiness; F17.200 Nicotine dependence, unspecified, uncomplicated; F12.90 Cannabis use, unspecified, uncomplicated; Z91.030 Bee allergy status; Y92.89 Other specified places as the place of occurrence of the external cause

== ENCOUNTER 2024-02-05 04:33 | Emergency (ER) | payer SELFPAY ==
[~2024-02-05] VITALS: Ht 177.8 cm; Wt 88.3 kg
[2024-02-05 04:53] VITALS: BP 119/76
[2024-02-05] MEDS ORDERED: AMOX-CLAV 875-1 EACH PO (04:59)
[2024-02-05] MEDS ORDERED: MEDROL DOSEPAK4 MG PO (04:59)
[2024-02-05] MEDS ORDERED: Amoxicillin/Clavulanate Pota 875 MG TAB PO ONE (05:00)
[2024-02-05] MEDS ORDERED: Dexamethasone Sodium Phospha 20 MG/5 ML VIAL IM ONE (05:00)
== END 2024-02-05 05:17 | disposition home or self-care (01) ==
LOC: ED 04:33
DX: H66.90 Otitis media, unspecified, unspecified ear (principal); I50.9 Heart failure, unspecified; R09.89 Other specified symptoms and signs involving the circulatory and respiratory systems; F17.200 Nicotine dependence, unspecified, uncomplicated; Z91.030 Bee allergy status; Z79.899 Other long term (current) drug therapy; Z79.82 Long term (current) use of aspirin

== ENCOUNTER → 2024-02-07 | Outpatient (CLI) | payer SELFPAY ==
[~2024-02-07] MED LIST changes: +AMOX-CLAV 875-1 EACH PO
== END | disposition home or self-care (01) ==
LOC: RESCLI 12:25
PROVIDERS: ATTEND Internal Medicine
DX: R06.09 Other forms of dyspnea (principal); J44.9 Chronic obstructive pulmonary disease, unspecified; E78.5 Hyperlipidemia, unspecified; I50.9 Heart failure, unspecified; Z71.6 Tobacco abuse counseling; Z79.899 Other long term (current) drug therapy; Z79.82 Long term (current) use of aspirin; Z98.890 Other specified postprocedural states

== ENCOUNTER → 2024-08-07 | Outpatient (CLI) | payer MEDICAID | END | disposition home or self-care (01) | LOC: RESCLI 13:13 | PROVIDERS: ATTEND Internal Medicine | DX: J44.9 Chronic obstructive pulmonary disease, unspecified (principal); E78.5 Hyperlipidemia, unspecified; Z71.6 Tobacco abuse counseling; Z79.899 Other long term (current) drug therapy; Z98.890 Other specified postprocedural states ==

== ENCOUNTER → 2024-11-06 | Outpatient (CLI) | payer MEDICAID | END | disposition home or self-care (01) | LOC: RESCLI 00:05 | PROVIDERS: ATTEND Student in an Organized Health Care Education/Training Program | DX: J44.9 Chronic obstructive pulmonary disease, unspecified (principal); E78.5 Hyperlipidemia, unspecified; Z71.6 Tobacco abuse counseling; Z79.82 Long term (current) use of aspirin; Z79.899 Other long term (current) drug therapy; F17.200 Nicotine dependence, unspecified, uncomplicated; Z82.49 Family history of ischemic heart disease and other diseases of the circulatory system ==

== ENCOUNTER 2024-11-13 12:45 | Emergency (ER) | payer MEDICAID ==
[~2024-11-13] VITALS: Ht 175.2 cm; Wt 86.2 kg
[2024-11-13 12:51] VITALS: BP 100/74
[2024-11-13] MEDS ORDERED: SODIUM CHLORIDE 0.9% 1,000 ML IV ONE (14:00)
[2024-11-13] MEDS ORDERED: Ondansetron Hydrochloride 4 MG/2 ML VIAL IV ONE (14:00)
[2024-11-13] MEDS ORDERED: IOHEXOL 300 MG/ML 100 ML VIAL IV ONE (14:10)
[2024-11-13 14:12] LABS: BASO # 0.1 10*3/uL (0.0-0.1); BASO % 1.0 % (0.0-1.0); EOS # 0.2 10*3/uL (0.0-0.4); EOS % 2.5 % (1.0-4.0); MEAN CELL VOLUME 90.6 fl (80.0-94.0); MEAN CORPUSCULAR HGB 29.9 pg (27.0-31.0); MEAN PLATELET VOLUME 8.1 fl (9.6-12.3); MONO # 0.7 10*3/uL (0.1-1.0); MONO % 7.0 % (3.0-9.0); NEUT # 6.4 10*3/uL (2.3-7.9); NEUT % 68.4 % (47.0-73.0); NUCLEATED RED BLOOD CELL 0.0 % (0.0-0.0); NUCLEATED RED BLOOD CELL 0.0 10*3/uL (0.0-0.0); PLATELET COUNT AUTOMATED 377 10*3/uL (130-400); RED CELL DISTRI WIDTH 13.1 % (0-14.5)
[2024-11-13 14:23] LABS: BILIRUBIN Negative (Negative); BLOOD Negative (Negative); CLARITY Clear (Clear); COLOR Yellow (Yellow); KETONE Trace (Negative); LEUKO ESTERASE Negative (Negative); NITRITE Negative (Negative); PH 5.0 (4.5-8.0); SPECIFIC GRAVITY 1.020 (1.001-1.030); UROBILINOGEN 1.0 E.U./dl (0.0-1.0)
[2024-11-13 14:34] LABS: CALCIUM OXALATE CRYSTALS Trace; MUCOUS 1+; RBC 0-2 rbc/hpf (0-2); WBC 0-2 wbc/hpf (0-5)
[2024-11-13 14:36] LABS: BUN 11 mg/dl (9-23); SGPT/ALT 8 U/L (5-49)
== END 2024-11-13 19:21 | disposition home or self-care (01) ==
LOC: ED 12:45
PROVIDERS: Nurse Practitioner Family
DX: R10.31 Right lower quadrant pain (principal); R19.7 Diarrhea, unspecified; F17.200 Nicotine dependence, unspecified, uncomplicated; Z91.030 Bee allergy status

== ENCOUNTER 2025-01-30 16:02 | Emergency (ER) | payer MEDICAID ==
[~2025-01-30] VITALS: Ht 175.2 cm; Wt 81.6 kg
[2025-01-30 16:12] VITALS: BP 121/71
[2025-01-30] MEDS ORDERED: Sulfamethoxazole/Trimethopri 1 TAB TAB PO ONE (16:20)
[2025-01-30] MEDS ORDERED: SEPTDS PO (16:22)
== END 2025-01-30 16:40 | disposition home or self-care (01) ==
LOC: ED 16:02
DX: L03.311 Cellulitis of abdominal wall (principal); J44.9 Chronic obstructive pulmonary disease, unspecified; E78.5 Hyperlipidemia, unspecified; F12.90 Cannabis use, unspecified, uncomplicated; F17.210 Nicotine dependence, cigarettes, uncomplicated; Z91.030 Bee allergy status

== ENCOUNTER → 2025-02-05 | Outpatient (CLI) | payer MEDICAID ==
[~2025-02-05] MED LIST changes: +SEPTDS PO
== END | disposition home or self-care (01) ==
LOC: RESCLI 02:26
PROVIDERS: ATTEND Internal Medicine
DX: J44.9 Chronic obstructive pulmonary disease, unspecified (principal); E78.5 Hyperlipidemia, unspecified; C85.90 Non-Hodgkin lymphoma, unspecified, unspecified site; Z79.82 Long term (current) use of aspirin; Z79.899 Other long term (current) drug therapy

== ENCOUNTER → 2025-03-06 | Outpatient (CLI) | payer MEDICAID | END | disposition home or self-care (01) | LOC: LAB 13:42 | PROVIDERS: ATTEND Internal Medicine Hematology & Oncology | DX: C83.33 Diffuse large B-cell lymphoma, intra-abdominal lymph nodes (principal); C82.93 Follicular lymphoma, unspecified, intra-abdominal lymph nodes ==